=== PATIENT | female | born 1980 | race Caucasian/White ===

== ENCOUNTER → 2020-04-22 | Outpatient (CLI) | payer BC, OTHER ==
[~2020-04-22] MED LIST: SPIR50TA4 PO
[2020-04-22 10:16] LABS: BASOPHILS # (AUTO) 0.02 x10^3/uL (0-0.1); BASOPHILS % (AUTO) 1 % (0-1); EOSINOPHILS # (AUTO) 0.08 x10^3/uL (0-0.4); EOSINOPHILS % (AUTO) 2 % (1-7); LYMPHOCYTES # (AUTO) 1.32 x10^3/uL (1-3.4); LYMPHOCYTES % (AUTO) 27 % (22-44); MD NO; MEAN CORPUSCULAR HEMOGLOBIN 31.7 pg (27.0-34.8); MEAN CORPUSCULAR HGB CONC 32.9 g/dL (32.4-35.8); MEAN CORPUSCULAR VOLUME 96.3 fL (80-100); MEAN PLATELET VOLUME 8.6 fL (7.4-10.4); MONOCYTES # (AUTO) 0.39 x10^3/uL (0.2-0.8); MONOCYTES % (AUTO) 8 % (2-9); NEUTROPHILS # (AUTO) 3.08 x10^3/uL (1.8-6.8); NEUTROPHILS % (AUTO) 63 % (42-75); PLATELET COUNT 220 x10^3/uL (130-400); RED BLOOD COUNT 4.61 x10^6/uL (3.82-5.3); RED CELL DISTRIBUTION WIDTH 13.8 % (9.6-15.2)
[2020-04-22 10:24] LABS: MICROSCOPIC NOT IND
[2020-04-22 10:29] LABS: ALANINE AMINOTRANSFERASE 69 U/L (12-78); ALBUMIN 3.8 g/dL (3.4-5.0); ANION GAP 5 mmol/L (5-15); CALCIUM 8.8 mg/dL (8.5-10.1); CHLORIDE 110 mmol/L (98-107); CREATININE 0.79 mg/dL (0.55-1.02)
[2020-04-22 10:33] LABS: ALKALINE PHOSPHATASE 77 U/L (45-117); BILIRUBIN,TOTAL 0.8 mg/dL (0.2-1.0); TOTAL PROTEIN 7.4 g/dL (6.4-8.2)
== END | disposition home or self-care (01) ==
LOC: STAR 09:27
PROVIDERS: ATTEND Obstetrics & Gynecology Gynecology
DX: Z01.818 Encounter for other preprocedural examination (principal); N84.0 Polyp of corpus uteri
CPT/HCPCS: 36415; 80053; 81003; 84703; 85025

== ENCOUNTER → 2020-04-27 | Outpatient (CLI) | payer OTHER | END | disposition home or self-care (01) | LOC: STAR 08:00 | PROVIDERS: ATTEND Obstetrics & Gynecology Gynecology | DX: Z01.818 Encounter for other preprocedural examination (principal); Z11.59 Encounter for screening for other viral diseases | CPT/HCPCS: 36415; 87635 ==

== ENCOUNTER 2020-05-01 07:29 | Day surgery (SDC) | payer BC, OTHER ==
[~2020-05-01] VITALS: Ht 167.6 cm; Wt 96.2 kg
[~2020-05-01 07:29] MED LIST changes: +LIDOCAINE 1%-EPI 1:100K, 20ML ONE
[2020-05-01] MEDS ORDERED: FENTANYL PF 100 MCG/2ML ONE (07:44)
[2020-05-01] MEDS ORDERED: ONDANSETRON 2MG/ML, 2ML ONE (07:45)
[2020-05-01] MEDS ORDERED: PROPOFOL 10 MG/ML, 20ML ONE (07:45)
[2020-05-01] MEDS ORDERED: DEXAMETHASONE 4 MG/ML, 1ML ONE (07:45)
[2020-05-01] MEDS ORDERED: MIDAZOLAM 1 MG/ML, 2ML ONE (07:45)
[2020-05-01] MEDS ORDERED: CEFAZOLIN 1,000 MG ONE (07:45)
[2020-05-01] MEDS ORDERED: PROMETHAZINE 25 MG/ML, 1ML IVPush PRN (08:00)
[2020-05-01] MEDS ORDERED: MEPERIDINE/PF 25MG/0.5ML IVPush PRN (08:00)
[2020-05-01] MEDS ORDERED: FENTANYL PF 100 MCG/2ML IV PRN (08:00)
[2020-05-01] MEDS ORDERED: OXYcodone 5 MG/5 ML ORAL.SOL UDC PO PRN (08:00)
[2020-05-01] MEDS ORDERED: HYDROcodone/APAP 7.5-325MG/15ML UDC PO PRN (08:00)
[2020-05-01] MEDS ORDERED: HYDROmorphone 1 MG/ML, 1ML INJ IVPush PRN (08:00)
[2020-05-01] MEDS ORDERED: LACTATED RINGERS 1,000 ML IV SCH (08:22)
[2020-05-01] MEDS ORDERED: CHLORHEXIDINE 15 ML UDC ONE (08:25)
[2020-05-01] MEDS ORDERED: CHLORHEXIDINE 15 ML UDC MM ONE (08:30)
[2020-05-01] MEDS ORDERED: KETOROLAC 30 MG/1 ML ONE (09:15)
[2020-05-01 09:20] LABS: HCG UR SG 1.025 (1.003-1.030)
== END 2020-05-01 12:15 | disposition home or self-care (01) ==
LOC: OUT 07:29
PROVIDERS: ATTEND Obstetrics & Gynecology Gynecology
DX: N84.0 Polyp of corpus uteri (principal); Z88.1 Allergy status to other antibiotic agents; R93.89 Abnormal findings on diagnostic imaging of other specified body structures; N88.2 Stricture and stenosis of cervix uteri; Z79.899 Other long term (current) drug therapy; Z72.89 Other problems related to lifestyle; Z82.49 Family history of ischemic heart disease and other diseases of the circulatory system; Z83.3 Family history of diabetes mellitus
CPT/HCPCS: 58300; 58558; 81025; 88305; J0690; J1100; J1885; J2250; J2405; J2704; J3010; J3490; J7120; J7298; 36415; 87635